=== PATIENT | female | born 1960 | race Caucasian/White ===

== ENCOUNTER 2017-08-05 22:23 | Emergency (ER) | payer MEDICARE ==
[2017-08-05] MEDS ORDERED: AMPICILLIN SODIUM/SULBACTAM NA 3 G in 0.9 % SODIUM CHLORIDE 100ML 100 ML IVPB ONE (22:42)
--- NOTE | 2017-08-05 22:42 | Emergency Department Record ---
History of Present Illness - General Chief Complaint: Animal Bite Stated Complaint: DOG BITE Time Seen by Provider: 08/05/17 22:36 Source: Patient Mode of Arrival: Ambulatory Limitations: No limitations - History of Present Illness Initial Comments: 57 yo female presents to ED for evaluation of increased swelling and pain to the dorsum of the right hand following a dog bite that occurred approximately 30 hours ago. Patient reports that the injury occurred trying to separate her dog from another dog, denies fevers, chills, nausea or vomiting. Patient denies health problems at her baseline. MD Complaint: Animal bite Onset/Timin -: Hour(s) Left: Hand Animal: Dog Description: Household pet Mechanism: Bite Context: Animals fighting Associated Symptoms: Erythema - Related Data Allergies Allergy/AdvReac Type Severity Reaction Status Date / Time hydrocodone bitartrate Allergy Mild RASH Unverified 10/02/15 14:08 [From [place]] codeine Allergy RASH Verified 12/23/15 20:05 Review of Systems Constitutional: Denies: Chills, Fever, Malaise, Night sweats Eyes: Denies: Eye discharge, Eye pain ENT: Denies: Congestion, Ear pain, Epistaxis Respiratory: Denies: Cough, Dyspnea Cardiovascular: Denies: Chest pain, Dyspnea on exertion Endocrine: Denies: Fatigue, Heat or cold intolerance Gastrointestinal: Denies: Abdominal pain, Nausea, Vomiting Genitourinary: Denies: Incontinence, Retention Musculoskeletal: Reports: Joint swelling, Myalgia. Denies: Arthralgia, Back pain, Gout Skin: Reports: Change in color. Denies: Bruising Neurological: Denies: Abnormal gait, Confusion, Headache, Seizure Psychiatric: Denies: Anxiety Hematological/Lymphatic: Denies: Anemia, Blood Clots Past Medical History - SOCIAL HISTORY Smoking Status: Light tobacco smoker (<10/day) Drug Use: None - RESPIRATORY Hx Respiratory Disorders: No - CARDIOVASCULAR Hx Cardio Disorders: No - NEURO Hx Neuro Disorders: Yes Comment:: RSD - GI Hx GI Disorders: No - Hx Genitourinary Disorders: No - ENDOCRINE Hx Endocrine Disorders: Yes Hx Thyroid Disease: Yes (Hypothyroid) - MUSCULOSKELETAL Hx Musculoskeletal Disorders: No - PSYCH Hx Psych Problems: Yes Hx Anxiety: Yes Comment:: Bi-Polar - HEMATOLOGY/ONCOLOGY Hx Hematology/Oncology Disorders: No Family Medical History Hx Cancer: Mother Physical Exam - General General Appearance: Alert, Oriented x3, Cooperative, Moderate distress Limitations: No limitations - Head Head exam: Atraumatic, Normocephalic, Normal inspection Head exam detail: negative: Abrasion, Contusion, Simms's sign, General tenderness, Hematoma, Laceration - Eye Eye exam: Normal appearance. negative: Conjunctival injection, Periorbital swelling, Periorbital tenderness, Scleral icterus - ENT Ear exam: negative: Auricular hematoma, Auricular trauma Nasal Exam: negative: Active bleeding, Discharge, Dried blood, Foreign body Mouth exam: negative: Drooling, Laceration, Muffled voice, Tongue elevation - Neck Neck exam: Normal inspection. negative: Meningismus, Tenderness - Respiratory Respiratory exam: Normal lung sounds bilaterally. negative: Rales, Respiratory distress, Rhonchi, Stridor - Cardiovascular Cardiovascular Exam: Regular rate, Normal rhythm, Normal heart sounds - GI/Abdominal GI/Abdominal exam: Soft. negative: Rebound, Rigid, Tenderness - Rectal Rectal exam: Deferred - exam: Deferred - Extremities Extremities exam: Other (Several bite wounds are present to the dorsum of the right hand, significant STS is present without induration or fluctuance, erythema is present). negative: Calf tenderness - Back Back exam: Denies: CVA tenderness (R), CVA tenderness (L) - Neurological Neurological exam: Alert, Normal gait, Oriented X3 - Psychiatric Psychiatric exam: Normal affect, Normal mood - Skin Skin exam: Erythema Distribution of rash: RUE Description of rash: Erythematous. negative: Fluctuant, Indurated Course Vital Signs 08/05/17 22:32 Temperature 98.1 F Pulse Rate [ 72 Pulse Ox Probe] Respiratory 18 Rate Blood Pressure 117/58 [Right Arm] Pulse Ox 96 - Reevaluation(s) Reevaluation #1: 08/05/17 23:03 Case was discussed with Dr. Hernandez, will accept patient for admission and possible hand consultation (not available at [facility]). Unasyn is currently infusing, laboratory studies drawn. Reevaluation #2: 08/05/17 23:29 Labs reviewed, WBC 8.2, CRP 2.1. ESR pending. Unasyn has completed infusion, and appears stable for discharge at this time. Medical Decision Making - Lab Data Result diagrams: 08/05/17 23:00 08/05/17 23:00 Disposition Disposition: Transfer Clinical Impression: Infected dog bite of hand Qualifiers: Encounter type: initial encounter Laterality: right Qualified Code(s): S61.451A - Open bite of right hand, initial encounter Disposition: Acute Care Hospital Transfer Transfer To: [facility] Reason For Transfer: Hand Consultation Accepting Physician: Fill Time Discussed w/Accepting Physician: 22:47 Condition: (2) Stable Forms: Patient Portal Access Time of Disposition: 22:47 Quality - Quality Measures Quality Measures: N/A - Blood Pressure Screening Does Patient Have Any of the Following: No Blood Pressure Classification: Normal BP Reading Systolic Measurement: 117 Diastolic Measurement: 58 Screening for High Blood Pressure: < Normal BP, F/U Not Required > [G8783]
[2017-08-05] MEDS ORDERED: KETOROLAC 30 MG/ML VIAL IVP ONE (23:01)
[2017-08-05] MEDS ORDERED: OXYCODONE HCL/APAP 5MG/325MG TABLET PO ONE (23:04)
[2017-08-05 23:09] LABS: BASO % 0.6 % (0-6); EOS % 2.5 % (0-6); GRAN % 61.2 % (47-80); HEMATOCRIT 39.9 % (35.0-47.0); HEMOGLOBIN 13.3 gm/dl (11.6-16.0); MEAN CELL VOLUME 89.1 fl (81-97); MEAN CORPUSCULAR HEMOGLOBIN 29.7 pg (27-33); MEAN CORPUSCULAR HGB CONC 33.3 g/dl (32-36); MEAN PLATELET VOLUME 10.3 fl (7.4-10.4); MONO % 8.7 % (0-9); PLATELET COUNT 254 K/uL (130-400); RED BLOOD COUNT 4.48 M/uL (3.80-5.40); RED CELL DISTRIBUTION WIDTH 14.8 % (11.5-14.5); WHITE BLOOD COUNT W/O DIFF 8.2 K/uL (4.2-12.2)
[2017-08-05 23:22] LABS: ALB/GLOB RATIO 1.2 (1.1-1.8); ALBUMIN 3.4 g/dL (4.0-5.0); ALKALINE PHOSPHATASE 58 U/L (35-104); ALT/SGPT 8 U/L (<33); AST/SGOT 14 U/L (10.0-35.0); BLOOD UREA NITROGEN 14 mg/dL (6-20); C-REACTIVE PROTEIN 2.1 mg/L (<5.0); CREATININE 0.6 mg/dL (0.5-0.9); EST GLOMERULAR FILTRATION RATE > 60 mL/min; GLUCOSE,RANDOM 98 mg/dL (74-109); TOTAL PROTEIN 6.2 g/dL (6.6-8.7)
[2017-08-05 23:49] LABS: ERYTHROCYTE SEDIMENTATION RATE 11 mm/hr (0-30)
== END 2017-08-05 23:38 | disposition short-term general hospital (02) ==
LOC: ER 22:23
DX: S61.451A Open bite of right hand, initial encounter (principal); W54.0XXA Bitten by dog, initial encounter
CPT/HCPCS: 99284 ×2; 96374; 96375; 85025; 85651; 86140; 80053; J0295; J1885

== ENCOUNTER 2018-07-23 16:16 | Emergency (ER) | payer MEDICARE ==
[2018-07-23] MEDS ORDERED: PROPARACAINE HCL OPTH 15ML BTL OPTH ONE (17:13)
--- NOTE | 2018-07-23 18:33 | Emergency Department Record ---
History of Present Illness - General Chief complaint: Eye Problem Stated complaint: FB IN L EYE Time Seen by Provider: 07/23/18 17:36 Source: Patient Mode of Arrival: Ambulatory Limitations: No limitations - History of Present Illness Initial comments: pt was poked in eye by a sunflower stem. she had some blood come out of her eye and had difficulty opening lid. her vision she felt was blurry. MD chief complaint: Eye pain, Eye redness, Eye injury, Foreign body, Vision change Onset/Timin -: Hour(s) Onset Description: Sudden Location: Left eye Place: Street/outdoors If Injury: Direct trauma Eye Symptoms: Decreased vision, Pain, Other Severity: Mild Severity scale (1-10): 3 If Pain, Quality: Aching Consistency: Constant Associated Symptoms: None Treatments Prior to Arrival: None - Related Data Visual acuity (R) = 20/: 40 With correction: No Hx Tetanus Toxoid Vaccination: No Patient Tetanus UTD (within 5 yrs): No Previous Rx's Medication Instructions Recorded Oxycodone HCl/Acetaminophen 1 tab PO Q6H PRN #7 tab 07/23/18 [Percocet 5mg/325mg] Allergies Allergy/AdvReac Type Severity Reaction Status Date / Time hydrocodone bitartrate Allergy Mild RASH Verified 07/23/18 17:18 [From [place]] codeine Allergy RASH Verified 07/23/18 17:18 Travel Screening - Travel/Exposure Within Last 30 Days Have you traveled within the last 30 days?: No Review of Systems Reviewed: No additional complaints except as noted below Constitutional: Reports: As per HPI. Denies: Chills, Fever, Malaise, Night sweats, Weakness, Weight change Eyes: Reports: As per HPI. Denies: Eye discharge, Eye pain, Photophobia, Vision change ENT: Reports: As per HPI. Denies: Congestion, Dental pain, Ear pain, Epistaxis , Hearing loss, Throat pain Respiratory: Reports: As per HPI. Denies: Cough, Dyspnea, Hemoptysis, Stridor, Wheezes Cardiovascular: Reports: As per HPI. Denies: Arrhythmia, Chest pain, Dyspnea on exertion, Edema, Murmurs, Orthopnea, Palpitations, Paroxysmal nocturnal dyspnea, Rheumatic Fever, Syncope Endocrine: Reports: As per HPI. Denies: Fatigue, Heat or cold intolerance, Polydipsia, Polyuria Gastrointestinal: Reports: As per HPI. Denies: Abdominal pain, Constipation, Diarrhea, Hematemesis, Hematochezia, Melena, Nausea, Vomiting Genitourinary: Reports: As per HPI. Denies: Abnormal menses, Discharge, Dyspareunia, Dysuria, Frequency, Hematuria, Incontinence, Retention, Urgency Musculoskeletal: Reports: As per HPI. Denies: Arthralgia, Back pain, Gout, Joint swelling, Myalgia, Neck pain Skin: Reports: As per HPI. Denies: Bruising, Change in color, Change in hair/ nails, Lesions, Pruritus, Rash Neurological: Reports: As per HPI. Denies: Abnormal gait, Confusion, Headache, Numbness, Paresthesias, Seizure, Tingling, Tremors, Vertigo, Weakness Psychiatric: Reports: As per HPI. Denies: Anxiety, Auditory hallucinations, Depression, Homicidal thoughts, Suicidal thoughts, Visual hallucinations Hematological/Lymphatic: Reports: As per HPI. Denies: Anemia, Blood Clots, Easy bleeding, Easy bruising, Swollen glands Past Medical History - SOCIAL HISTORY Smoking Status: Light tobacco smoker (<10/day) Alcohol Use: None Drug Use: None - RESPIRATORY Hx Respiratory Disorders: No - CARDIOVASCULAR Hx Cardio Disorders: No - NEURO Hx Neuro Disorders: Yes Comment:: RSD - GI Hx GI Disorders: No - Hx Genitourinary Disorders: No - ENDOCRINE Hx Endocrine Disorders: Yes Hx Thyroid Disease: Yes (Hypothyroid) - MUSCULOSKELETAL Hx Musculoskeletal Disorders: No - PSYCH Hx Psych Problems: Yes Hx Anxiety: Yes Comment:: Bi-Polar - HEMATOLOGY/ONCOLOGY Hx Hematology/Oncology Disorders: No Family Medical History Any Significant Family History?: Yes Hx Cancer: Mother Physical Exam - General General Appearance: Alert, Oriented x3, Cooperative, Mild distress - Head Head exam: Normal inspection - Eye Eye exam: Normal appearance, PERRL, Conjunctival injection, EOMI, Other ( subconjunctival hemmorage along medial aspect of left eye. flourescien uptake 9- 11 on cornea) Pupils: Normal accommodation With correction: No - ENT ENT exam: Normal exam, Mucous membranes moist, Normal external ear exam, Normal orophraynx Ear exam: Normal external inspection. negative: External canal tenderness Nasal Exam: Normal inspection. negative: Discharge, Sinus tenderness Mouth exam: Normal external inspection, Tongue normal Teeth exam: Normal inspection. negative: Dental caries Throat exam: Normal inspection. negative: Tonsillar erythema, Tonsillar exudate - Neck Neck exam: Normal inspection, Full ROM. negative: Tenderness - Respiratory Respiratory exam: Normal lung sounds bilaterally. negative: Respiratory distress - Cardiovascular Cardiovascular Exam: Regular rate, Normal rhythm, Normal heart sounds - GI/Abdominal GI/Abdominal exam: Soft, Normal bowel sounds. negative: Tenderness - Rectal Rectal exam: Deferred - exam: Deferred - Extremities Extremities exam: Normal inspection, Full ROM, Normal capillary refill. negative: Tenderness - Back Back exam: Reports: Normal inspection, Full ROM. Denies: Muscle spasm, Rash noted, Tenderness - Neurological Neurological exam: Alert, CN II-XII intact, Normal gait, Oriented X3 - Psychiatric Psychiatric exam: Normal affect, Normal mood - Skin Skin exam: Dry, Intact, Normal color, Warm Course Vital Signs 07/23/18 17:14 Temperature 98.4 F Pulse Rate 72 Respiratory 18 Rate Blood Pressure 104/66 Pulse Ox 96 - Reevaluation(s) Reevaluation #1: 07/23/18 18:34 after [place] pt could see and visual acuity was 20/25 withour her glasses Reevaluation #2: 07/23/18 18:50 ct neg. d/w dr torres who said he will see pt if she does not get better Disposition Disposition: Discharge Clinical Impression: Laceration of left conjunctiva Qualifiers: Encounter type: initial encounter Qualified Code(s): S05.32XA - Ocular laceration without prolapse or loss of intraocular tissue, left eye, initial encounter Corneal abrasion Qualifiers: Encounter type: initial encounter Laterality: left Qualified Code(s): S05.02XA - Injury of conjunctiva and corneal abrasion without foreign body, left eye, initial encounter Disposition: Home, Self-Care Condition: (1) Good Instructions: Corneal Abrasion (ED) Additional Instructions: follow up with dr torres in 2 days. return sooner if worse. erythromycin ointment 4 times a day for the next 5 days. no driving until improved Prescriptions: Oxycodone HCl/Acetaminophen [Percocet 5mg/325mg] 1 tab PO Q6H PRN #7 tab PRN Reason: Pain - Mod To Severe (5-10) Forms: Patient Portal Access Quality - Quality Measures Quality Measures: N/A - Blood Pressure Screening Does Patient Have Any of the Following: No Blood Pressure Classification: Normal BP Reading Systolic Measurement: 104 Diastolic Measurement: 66 Screening for High Blood Pressure: < Normal BP, F/U Not Required > [G2796]
[2018-07-23] MEDS ORDERED: ERYTHROMYCIN OPTH OINT 3.5GM OPTH ONE (18:46)
[2018-07-23] MEDS ORDERED: OXYCODONE HCL/APAP 5MG/325MG TABLET PO ONE (18:49)
--- NOTE | 2018-07-25 15:02 | CT SCAN REPORT ---
EXAM: CT SCAN OF THE ORBITS WITHOUT CONTRAST HISTORY: LEFT EYE PUNCTURE INJURY WHILE DOING YARD WORK TODAY. EVALUATE FOR OCULAR GLOBE RUPTURE. TECHNIQUE: Standard CT imaging of the orbits was performed in the axial plane without contrast. Additional coronal and sagittal reformatted images were also performed. Comparison: None. Encounter: Initial. FINDINGS: The orbits appear normal. The ocular globes are intact. The anterior chambers, lenses and vitreus are normal in appearance and symmetric bilaterally. There is no air within the left ocular globe. There is no visible radiopaque foreign body. The intraorbital fat is unremarkable. The optic nerves and extraocular muscles are normal in appearance and symmetric bilaterally. No significant periorbital soft tissue swelling is identified. There is no abnormal soft tissue air. There is a tiny mucous retention cyst within the left maxillary sinus. The sinuses are otherwise clear. The facial bones appear intact. IMPRESSION: NO ACUTE INTRAORBITAL PATHOLOGY. THERE IS NO EVIDENCE FOR RUPTURE OF THE OCULAR GLOBE OR ANTERIOR CHAMBER. THERE IS NO RADIOPAQUE FOREIGN BODY. JOB NUMBER: [id number] [facility]
== END 2018-07-23 19:11 | disposition home or self-care (01) ==
LOC: ER 16:16
DX: S05.02XA Injury of conjunctiva and corneal abrasion without foreign body, left eye, initial encounter (principal); S05.32XA Ocular laceration without prolapse or loss of intraocular tissue, left eye, initial encounter; W22.8XXA Striking against or struck by other objects, initial encounter; Y92.410 Unspecified street and highway as the place of occurrence of the external cause; F17.210 Nicotine dependence, cigarettes, uncomplicated
CPT/HCPCS: 70480; 99283; 99284